=== PATIENT | female | born 1960 | race Caucasian/White ===

== ENCOUNTER 2018-02-12 03:19 | Emergency (ER) | payer OTHER ==
--- NOTE | 2018-02-12 03:54 | ERPHSYRPT ---
- History of Present Illness Time Seen by Provider: 02/12/18 03:48 Source: patient Exam Limitations: no limitations Patient Subjective Stated Complaint: pt is alert and oriented. pt is ambulatory. pt comes in with c/o pain to her left face and abdomen. pt states her pain started 02/11/18 at 1800. pt is unsure of where her pain started. pt states she was doing "nothing" when her pain started. pt PERRL. no arm or leg drift. no facial droop. no slurring of words. bowels sounds hyperactive x4. lung sounds clear. Triage Nursing Assessment: see above Physician History: 58-year-old white female with history of migraines, high blood pressure, GERD, anxiety, hypothyroidism, hypercholesterolemia, She arrives with complaint of a tightness or paresthesia on the left side of her face associated with pain in her left upper abdomen and perhaps left upper chest underneath her left breast associated with shortness of breath. Sudden onset at approximately 6 PM last night. She states she has not had any nausea. Past medical history includes migraines, high blood pressure, GERD, anxiety, hypothyroidism, hypercholesterolemia, diverticulitis, reflux, gallbladder disease Past surgical history includes , tubal ligation, cholecystectomy Social history positive for tobacco use Timing/Duration: yesterday (last night at 6 PM) Severity: moderate Modifying Factors: Improves With: rest Associated Symptoms: abdominal pain (pain left upper quadrant), shortness of breath, chest pain (pain inferior to left breast), No nausea, No vomiting, No heartburn, No diaphoresis, No cough, No chills, No fever, No headaches, No loss of appetite, No malaise, No rash Allergies/Adverse Reactions: amoxicillin [Amoxicillin] Allergy (Mild, Verified 02/12/18 03:43) codeine [Codeine] Allergy (Mild, Verified 02/12/18 03:43) Home Medications: Lisinopril 10 mg [Zestril 10 MG] 40 mg PO DAILY 04/29/15 [History] Alprazolam 1 mg [Xanax 1 mg] 1 mg PO Q4H PRN PRN 02/12/18 [History] Metoprolol Tartrate 50 mg [Lopressor 50 MG] 50 mg PO DAILY 02/12/18 [ History] Hx Tetanus, Diphtheria Vaccination/Date Given: Yes Hx Influenza Vaccination/Date Given: No Hx Pneumococcal Vaccination/Date Given: No Immunizations Up to Date: Yes - Review of Systems Constitutional: No Fever, No Chills Eyes: No Symptoms Ears, Nose, & Throat: No Symptoms Respiratory: No Cough, No Dyspnea Cardiac: Chest Pain (tightness left upper quadrant and inferior to the left breast) Abdominal/Gastrointestinal: Abdominal Pain (Pain left upper quadrant), No Nausea , No Vomiting, No Diarrhea, No Constipation, No Hematemesis, No Hematochezia, No Melena, No Dysphagia, No Appetite Changes Genitourinary Symptoms: No Dysuria Musculoskeletal: No Back Pain, No Neck Pain Skin: No Rash Neurological: Parasthesia, No Focal Weakness, No Headache Psychological: No Symptoms Endocrine: No Symptoms All Other Systems: Reviewed and Negative - Past Medical History Pertinent Past Medical History: Yes Neurological History: No Pertinent History ENT History: No Pertinent History Cardiac History: Arrhythmia, High Cholesterol, Hypertension Respiratory History: No Pertinent History Endocrine Medical History: Hypothyroidism Musculoskeletal History: No Pertinent History GI Medical History: Diverticulitis, GERD, Gallbladder Disease, Irritable Bowel History: No Pertinent History Psycho-Social History: Anxiety, Panic Disorder Female Reproductive Disorders: No Pertinent History - Past Surgical History Past Surgical History: Yes Neuro Surgical History: No Pertinent History Cardiac: No Pertinent History Respiratory: No Pertinent History Gastrointestinal: Cholecystectomy Genitourinary: No Pertinent History Musculoskeletal: No Pertinent History Female Surgical History: Section - Social History Smoking Status: Current every day smoker How long have you smoked: 30 years Exposure to second hand smoke: Yes Drug Use: none Patient Lives Alone: No - Female History Hx Now: No - Nursing Vital Signs Nursing Vital Signs: Initial Vital Signs Temperature 97.6 F 02/12/18 03:19 Pulse Rate 74 02/12/18 03:19 Respiratory Rate 18 02/12/18 03:19 Blood Pressure 201/91 02/12/18 03:19 O2 Sat by Pulse Oximetry 95 02/12/18 03:19 Pain Scale Pain Intensity [] 10 Pain Intensity 0 - Physical Exam General Appearance: no apparent distress, alert Eye Exam: PERRL/EOMI, eyes nml inspection Ears, Nose, Throat Exam: normal ENT inspection, TMs normal, pharynx normal, moist mucous membranes Neck Exam: normal inspection, non-tender, supple, full range of motion Respiratory Exam: normal breath sounds, lungs clear, No respiratory distress Cardiovascular Exam: regular rate/rhythm, normal heart sounds, normal peripheral pulses Gastrointestinal/Abdomen Exam: soft, normal bowel sounds, No tenderness, No mass Back Exam: normal inspection, normal range of motion, No CVA tenderness, No vertebral tenderness Extremity Exam: normal inspection, normal range of motion, pelvis stable Neurologic Exam: alert, oriented x 3, cooperative, application assistant II-XII nml as tested, normal mood/affect, nml cerebellar function, nml station & gait, sensation nml, No motor deficits Skin Exam: normal color, warm, dry, No rash SpO2 Interpretation: normal (95%) SpO2: 95 Oxygen Delivery: Room Air - Course Nursing assessment & vital signs reviewed: Yes EKG Interpreted by Me: RATE (65 bpm), Sinus Rhythm, NORMAL AXIS, Other (EKG: Sinus arrhythmia, 68 bpm, normal axis, no acute ST or T wave changes noted) - Radiology Exams Chest X-ray Interpretation: Interpreted by me (no acute disease process noted) - CT Exams Head CT Interpretation: Tele-radiologist Report (no acute intracranial abnormalities) Ordered Tests: Active Orders 24 hr Category Date Time Status Accucheck STAT Care 02/12/18 03:46 Active EKG-ER Only STAT Care 02/12/18 03:46 Active IV Insertion STAT Care 02/12/18 03:46 Active CHEST 1 VIEW (PORTABLE) Stat Exams 02/12/18 03:47 Completed HEAD WITHOUT CONTRAST [CT] Stat Exams 02/12/18 03:47 Completed AMYLASE Stat Lab 02/12/18 03:47 Completed CBC W DIFF Stat Lab 02/12/18 03:46 Completed CMP Stat Lab 02/12/18 03:46 Completed CULTURE,URINE Stat Lab 02/12/18 05:44 Received CULTURE,URINE Stat Lab 02/12/18 05:44 Received LIPASE Stat Lab 02/12/18 03:47 Completed TROPONIN Q3H Lab 02/12/18 04:00 Completed UA W/ MICROSCOPIC Stat Lab 02/12/18 05:44 Completed Medication Summary Discontinued Medications Generic Name Dose Route Start Last Admin Trade Name Freq PRN Reason Stop Dose Admin Alprazolam 1 mg 02/12/18 06:24 02/12/18 06:30 Xanax 0.5 Mg PO 02/12/18 06:25 1 mg STAT ONE Administration Alprazolam Confirm 02/12/18 06:29 Xanax 0.5 Mg Administered 02/12/18 06:30 Dose 1 mg .ROUTE .STK-MED ONE Aspirin 324 mg 02/12/18 05:25 02/12/18 05:51 Baby Aspirin 81 Mg Chew PO 02/12/18 05:26 324 mg STAT ONE Administration Potassium Bicarbonate 50 meq 02/12/18 04:45 02/12/18 04:56 K-Lyte 25 Meq PO 02/12/18 04:46 50 meq STAT ONE Administration Potassium Bicarbonate Confirm 02/12/18 04:48 K-Lyte 25 Meq Administered 02/12/18 04:49 Dose 50 meq .ROUTE .STK-MED ONE Lab/Rad Data: Laboratory Result Diagrams 02/12/18 03:46 02/12/18 03:46 Laboratory Results 02/12/18 02/12/18 02/12/18 Range/Units 05:44 04:00 03:47 WBC (4.0-10.5) K/mm3 RBC (4.1-5.4) M/mm3 Hgb (12.0-16.0) gm/dl Hct (35-47) % MCV (78-100) fl MCH (26-32) pg MCHC (32-36) g/dl RDW (11.5-14.0) % Plt Count (150-450) K/mm3 MPV (6-9.5) fl Gran % (36.0-66.0) % Eos # (Auto) (0-0.5) Absolute Lymphs (auto) (1.0-4.6) Absolute Monos (auto) (0.0-1.3) Lymphocytes % (24.0-44.0) % Monocytes % (0.0-12.0) % Eosinophils % (0.00-5.0) % Basophils % (0.0-0.4) % Absolute Granulocytes (1.4-6.9) Basophils # (0-0.4) Sodium (137-145) mmol/L Potassium (3.5-5.1) mmol/L Chloride (98-107) mmol/L Carbon Dioxide (22-30) mmol/L Anion Gap (5-15) MEQ/L BUN (7-17) mg/dL Creatinine (0.52-1.04) mg/dL Estimated GFR ML/MIN Glucose (74-106) mg/dL Calcium (8.4-10.2) mg/dL Total Bilirubin (0.2-1.3) mg/dL AST (14-36) U/L ALT (0-35) U/L Alkaline Phosphatase (38-126) U/L Troponin I < 0.012 (0.000-0.034) ng/mL Serum Total Protein (6.3-8.2) g/dL Albumin (3.5-5.0) g/dL Amylase 33 (30-110) U/L Lipase 61 (23-300) U/L Ur Collection Type CLEAN CATCH Urine Color LT.YELLOW (YELLOW) Urine Appearance CLEAR (CLEAR) Urine pH 7.0 (5-6) Ur Specific [place] 1.005 (1.005-1.025) Urine Protein NEGATIVE (Negative) Urine Ketones NEGATIVE (NEGATIVE) Urine Blood NEGATIVE (0-5) Shane/ul Urine Nitrite NEGATIVE (NEGATIVE) Urine Bilirubin NEGATIVE (NEGATIVE) Urine Urobilinogen NORMAL (0-1) mg/dL Ur Leukocyte Esterase 2+ (NEGATIVE) Urine Microscopic RBC 0-2 (0-2) /HPF Urine Microscopic WBC 5-10 (0-5) /HPF Urine Bacteria FEW (NEGATIVE) /HPF Ur Culture Indicated? YES Urine Culture Reflexed YES (NO) Urine Glucose NEGATIVE (NEGATIVE) mg/dL Specimen Received [id number] 02/12/18 02/12/18 Range/Units 03:46 03:46 WBC 11.0 H (4.0-10.5) K/mm3 RBC 5.24 (4.1-5.4) M/mm3 Hgb 16.4 H (12.0-16.0) gm/dl Hct 48.5 H (35-47) % MCV 92.6 (78-100) fl MCH 31.2 (26-32) pg MCHC 33.8 (32-36) g/dl RDW 13.8 (11.5-14.0) % Plt Count 267 (150-450) K/mm3 MPV 9.5 (6-9.5) fl Gran % 63.2 (36.0-66.0) % Eos # (Auto) 0.24 (0-0.5) Absolute Lymphs (auto) 3.13 (1.0-4.6) Absolute Monos (auto) 0.62 (0.0-1.3) Lymphocytes % 28.6 (24.0-44.0) % Monocytes % 5.7 (0.0-12.0) % Eosinophils % 2.2 (0.00-5.0) % Basophils % 0.3 (0.0-0.4) % Absolute Granulocytes 6.93 H (1.4-6.9) Basophils # 0.03 (0-0.4) Sodium 141 (137-145) mmol/L Potassium 3.0 L (3.5-5.1) mmol/L Chloride 104 (98-107) mmol/L Carbon Dioxide 27 (22-30) mmol/L Anion Gap 13.0 (5-15) MEQ/L BUN 6 L (7-17) mg/dL Creatinine 0.75 (0.52-1.04) mg/dL Estimated GFR > 60.0 ML/MIN Glucose 141 H (74-106) mg/dL Calcium 9.5 (8.4-10.2) mg/dL Total Bilirubin 0.60 (0.2-1.3) mg/dL AST 28 (14-36) U/L ALT 33 (0-35) U/L Alkaline Phosphatase 91 (38-126) U/L Troponin I (0.000-0.034) ng/mL Serum Total Protein 7.1 (6.3-8.2) g/dL Albumin 4.2 (3.5-5.0) g/dL Amylase (30-110) U/L Lipase (23-300) U/L Ur Collection Type Urine Color (YELLOW) Urine Appearance (CLEAR) Urine pH (5-6) Ur Specific Commerce (1.005-1.025) Urine Protein (Negative) Urine Ketones (NEGATIVE) Urine Blood (0-5) Shane/ul Urine Nitrite (NEGATIVE) Urine Bilirubin (NEGATIVE) Urine Urobilinogen (0-1) mg/dL Ur Leukocyte Esterase (NEGATIVE) Urine Microscopic RBC (0-2) /HPF Urine Microscopic WBC (0-5) /HPF Urine Bacteria (NEGATIVE) /HPF Ur Culture Indicated? Urine Culture Reflexed (NO) Urine Glucose (NEGATIVE) mg/dL Specimen Received - Progress Progress: improved Progress Note: 02/12/18 06:18 58-year-old white female with history of migraines, high blood pressure, GERD, anxiety, hypothyroidism, hypercholesterolemia. Arrives with complaint of paresthesia and tightness in the left side of the face as well as pain in the left upper abdomen and in the left anterior chest described as a tightness. He said, around 6:00 associated with shortness of breath no nausea no vomiting. Patient with an EKG remarkable for sinus rhythm arrhythmia 65 beats for minute normal axis no acute ST or T wave changes patient was noted to have a low potassium of 3.0 chemistry otherwise was essentially normal patient was had a normal troponin patient's head CT was normal as well patient had no focal neurologic findings patient's chest x-ray was unremarkable head CT was unremarkable urinalysis 5-2 and white cells negative nitrites 2+ luekocyte estrace. Patient states she is feeling better she has no more chest pain. Patient has been given aspirin 324 mg orally. I have given the option of either having reached peak troponin or considering admission for observation patient states she would like to go home. She does ask however that she gave be given her Xanax 1 mg orally which she takes daily. Patient was also given potassium bicarbonate 50 mEq orally. Will discharge patient have patient taking aspirin 162 mg orally daily. Patient is to contact her family doctor and arrange for follow-up appointment. 02/13/18 04:35 - Departure Time of Disposition: 06:22 Departure Disposition: Home Clinical Impression: Facial paresthesia, Non-cardiac chest pain, Hypokalemia Abdominal pain Qualifiers: Abdominal location: left upper quadrant Qualified Code(s): R10.12 - Left upper quadrant pain UTI (urinary tract infection) Qualifiers: Urinary tract infection type: site unspecified Hematuria presence: without hematuria Qualified Code(s): N39.0 - Urinary tract infection, site not specified Condition: Fair Critical Care Time: No Referrals: FAZAL PEREZ [Primary Care Provider] - Additional Instructions: Return home rest. Plenty of fluids. Aspirin 162 mg orally daily. Follow-up with your family Dr. uribe today and arrange a follow-up appointment. Return for acute distress or for severe symptoms. Macrobid as directed. Prescriptions: Nitrofurantoin Macro 100 mg [Macrobid 100MG Capsule] 100 mg PO BID #20 cap
[2018-02-12 04:00] LABS: BASOPHIL % 0.3 % (0.0-0.4); Basophil (Absolute #) 0.03 (0-0.4); Eosinophil % 2.2 % (0.00-5.0); Eosinophil (Absolute #) 0.24 (0-0.5); Granulocyte Absolute (ANC) 6.93 (1.4-6.9); Granulocytes % 63.2 % (36.0-66.0); Hematocrit 48.5 % (35-47); Hemoglobin 16.4 gm/dl (12.0-16.0); Lymphocyte (Absolute #) 3.13 (1.0-4.6); Lymphocytes % 28.6 % (24.0-44.0); Mean Cell Volume 92.6 fl (78-100); Mean Corpuscular Hgb Concent. 33.8 g/dl (32-36); Mean Platelet Volume 9.5 fl (6-9.5); Monocyte (Absolute #) 0.62 (0.0-1.3); Monocytes % 5.7 % (0.0-12.0); Platelet Count 267 K/mm3 (150-450); Red Blood Count 5.24 M/mm3 (4.1-5.4); Red Cell Distribution Width 13.8 % (11.5-14.0)
[2018-02-12 04:05] LABS: Mean Corpuscular Hemoglobin 31.2 pg (26-32)
[2018-02-12 04:34] LABS: AMYLASE 33 U/L (30-110); LIPASE 61 U/L (23-300)
[2018-02-12 04:36] LABS: ALBUMIN 4.2 g/dL (3.5-5.0); ALKALINE PHOSPHATASE 91 U/L (38-126); BLOOD UREA NITROGEN 6 mg/dL (7-17); CHLORIDE 104 mmol/L (98-107); Calcium 9.5 mg/dL (8.4-10.2); Carbon Dioxide 27 mmol/L (22-30); Creatinine 1 0.75 mg/dL (0.52-1.04); Glucose 141 mg/dL (74-106); SGOT/AST 28 U/L (14-36); SGPT/ALT 33 U/L (0-35); SODIUM 141 mmol/L (137-145); Total Protein 7.1 g/dL (6.3-8.2)
[2018-02-12] MEDS ORDERED: K-LYTE 25 MEQ PO ONE (04:45)
[2018-02-12] MEDS ORDERED: K-LYTE 25 MEQ ONE (04:48)
[2018-02-12] MEDS ORDERED: BABY ASPIRIN 81 MG CHEW PO ONE (05:25)
[2018-02-12 06:06] LABS: Appearance CLEAR (CLEAR); Bilirubin NEGATIVE (NEGATIVE); Blood NEGATIVE Ery/ul (0-5); Glucose NEGATIVE (NEGATIVE); Ketones NEGATIVE (NEGATIVE); Leukocyte Esterase 2+ (NEGATIVE); Nitrite NEGATIVE (NEGATIVE); Protein,Urine Dip NEGATIVE (Negative); Specific Gravity 1.005 (1.005-1.025); Urobilinogen NORMAL mg/dL (0-1)
[2018-02-12 06:08] LABS: Bacteria FEW /HPF (NEGATIVE); RBC 0-2 /HPF (0-2)
[2018-02-12 06:24] VITALS: O2SAT 95
[2018-02-12] MEDS ORDERED: xanAX 0.5 MG PO ONE (06:24)
[2018-02-12] MEDS ORDERED: xanAX 0.5 MG ONE (06:29)
[2018-02-12 06:43] VITALS: BP 164/95; PULSE 66
--- NOTE | 2018-02-12 09:21 | XRAY ---
Indication: Left facial pain, tightness, and paresthesia. Anxiety. Multiple contiguous axial images obtained through the head without contrast. Comparison: August 21, 2011. Again no acute intracranial hemorrhage, abnormal extra-axial fluid collection, or mass effect. Stable 7 mm extra-axial calcification along the right frontal lobe either benign osteoma versus calcified meningioma. Fourth ventricle is midline without hydrocephalus. Draper-white matter differentiation is preserved. Bony calvarium intact. Visualized paranasal sinuses and mastoid air cells are clear. Impression: Stable right frontal lobe subcentimeter extra-axial calcification either benign osteoma versus calcified meningioma. No new or acute intracranial abnormalities. Comment: Preliminary interpretation was made by [facility]. No critical discrepancy. CTDI 70.00
--- NOTE | 2018-02-12 09:23 | XRAY ---
Indication: Short of breath. Left upper abdominal pain. Comparison: January 17, 2011. Portable chest remains clear. Heart and mediastinal structures within normal limits. Bony thorax intact again with mild degenerative changes. Impression: Stable nonacute chest.
== END 2018-02-12 06:43 | disposition home or self-care (01) ==
LOC: ED 03:19
DX: R20.2 Paresthesia of skin (principal); R51 Headache; R07.89 Other chest pain; E87.6 Hypokalemia; N39.0 Urinary tract infection, site not specified; R10.12 Left upper quadrant pain; R06.02 Shortness of breath; Z79.899 Other long term (current) drug therapy
CPT/HCPCS: 36000; 36415; 70450; 71045; 80053; 81000; 82150; 82962; 83690; 84484; 85025; 87086; 93005; 99284; A9270-GY

== ENCOUNTER 2019-02-03 16:26 | Emergency (ER) | payer OTHER ==
[2019-02-03 16:34] VITALS: BP 144/90; PULSE 100; O2SAT 97
--- NOTE | 2019-02-03 17:09 | ERPHSYRPT ---
- History of Present Illness Source: patient Exam Limitations: no limitations Patient Subjective Stated Complaint: PT states "I was at [facility] office earlier today and they said if I get to feeling bad to come to the ER. We are in the process of moving and I have really bad anxiety and high blood pressure and my meds got left and thrown out." Triage Nursing Assessment: Pt presented to the ER through the ambulance doors in private vehicle. PT anxious and irritable. PT able to ambulate with an uprigth steady gait, able to speak in clear full sentences. pt in no apparent respiratory distress. Physician History: Pt is a 59 y/o female that presented to the ER in need for Xanax Rx. Pt states , her Xanax prescription was lost and her PCP would not give her any replacement prescription. She came to the ER asking for a prescription for Xanax, feeling anxious. Timing/Duration: today Severity of Symptoms-Max: mild Severity of Symptoms-Current: mild Associated Symptoms: anxiety Previous symptoms: same symptoms as today Allergies/Adverse Reactions: amoxicillin [Amoxicillin] Allergy (Mild, Verified 02/12/18 03:43) codeine [Codeine] Allergy (Mild, Verified 02/12/18 03:43) Home Medications: Lisinopril 10 mg [Zestril 10 MG] 40 mg PO DAILY 04/29/15 [History] Alprazolam 1 mg [Xanax 1 mg] 1 mg PO Q4H PRN PRN 02/12/18 [History] Metoprolol Tartrate 50 mg [Lopressor 50 MG] 50 mg PO DAILY 02/12/18 [ History] Atorvastatin Calcium [Lipitor] 20 mg PO DAILY 02/03/19 [History] Hx Tetanus, Diphtheria Vaccination/Date Given: Yes Hx Influenza Vaccination/Date Given: No Hx Pneumococcal Vaccination/Date Given: No Immunizations Up to Date: Yes - Past Medical History Pertinent Past Medical History: Yes Neurological History: No Pertinent History ENT History: No Pertinent History Cardiac History: Arrhythmia, High Cholesterol, Hypertension Respiratory History: No Pertinent History Endocrine Medical History: Hypothyroidism Musculoskeletal History: No Pertinent History GI Medical History: Diverticulitis, GERD, Gallbladder Disease, Irritable Bowel History: No Pertinent History Psycho-Social History: Anxiety, Panic Disorder Female Reproductive Disorders: No Pertinent History - Past Surgical History Past Surgical History: Yes Neuro Surgical History: No Pertinent History Cardiac: No Pertinent History Respiratory: No Pertinent History Gastrointestinal: Cholecystectomy Genitourinary: No Pertinent History Musculoskeletal: No Pertinent History Female Surgical History: Section - Social History Smoking Status: Current every day smoker How long have you smoked: 32 years Exposure to second hand smoke: Yes Drug Use: none Patient Lives Alone: No - Female History Hx Last Menstrual Period: 7 years Hx Now: No (tubal) - Review of Systems Constitutional: No Fever, No Chills Eyes: No Symptoms Ears, Nose, & Throat: No Symptoms Respiratory: No Cough, No Dyspnea Cardiac: No Chest Pain, No Edema, No Syncope Abdominal/Gastrointestinal: No Abdominal Pain, No Nausea, No Vomiting, No Diarrhea Genitourinary Symptoms: No Dysuria Musculoskeletal: No Back Pain, No Neck Pain Skin: No Rash Neurological: No Dizziness, No Focal Weakness, No Sensory Changes Psychological: Anxiety - Nursing Vital Signs Nursing Vital Signs: Initial Vital Signs Temperature 98.4 F 02/03/19 16:29 Pulse Rate 100 H 02/03/19 16:29 Respiratory Rate 20 02/03/19 16:29 Blood Pressure 144/90 02/03/19 16:29 O2 Sat by Pulse Oximetry 97 02/03/19 16:29 Pain Scale Pain Intensity 0 - Physical Exam General Appearance: mild distress Eyes, Ears, Nose, Throat Exam: normal ENT inspection, moist mucous membranes Neck Exam: normal inspection, non-tender, supple Extremities Exam: normal inspection, normal range of motion, No evidence of injury, No edema Current Suicidality: denies suicide plan Neurological Exam: alert, advanced solutions architect II-XII nml as tested, oriented x 3 Appearance: appropriate appearance Behavior/Eye Contact/Speech: alert & cooperative, cooperative, good eye contact , normal speech Thoughts/Hallucinations: normal thought pattern Skin Exam: normal color, warm, dry, No rash SpO2 Interpretation: normal SpO2: 97 O2 Delivery: Room Air - Course Nursing assessment & vital signs reviewed: Yes - Progress Progress: unchanged Progress Note: 02/03/19 17:08 Pt was seen and examined. I explained the pt that I can't fill her Xanax prescription and she should go to her PCP, or the physician that is filling her meds, and see if she can get an early refil. As I am not following her as out pt, I can't prescribe the medication for her. Pt was encouraged to follow up with psych as an out pt. Discussed with : Kristyn Will see patient in: office Counseled pt/family regarding: need for follow-up - Departure Departure Disposition: Home Clinical Impression: Anxiety, Medication refill Condition: Stable Critical Care Time: No Referrals: KESHAV SNEED [Primary Care Provider] - Additional Instructions: F/U with PCP for meds refills.
== END 2019-02-03 18:07 | disposition home or self-care (01) ==
LOC: ED 16:26
DX: F41.9 Anxiety disorder, unspecified (principal); Z76.0 Encounter for issue of repeat prescription; Z79.899 Other long term (current) drug therapy; I10 Essential (primary) hypertension
CPT/HCPCS: 99283